=== PATIENT | female | born 1960 | race Caucasian/White ===

== ENCOUNTER 2019-10-12 09:19 | Outpatient (CLI) | payer BC, SELFPAY ==
--- NOTE | 2019-10-12 09:25 | MM_ITS ---
WS: [id number] BILATERAL DIGITAL SCREENING MAMMOGRAPHY WITH CAD CLINICAL INFORMATION: SCREENING HISTORY: Screening mammogram. No current complaints. COMPARISON: None. TECHNIQUE: Bilateral CC and MLO views. FINDINGS: Scattered fibroglandular densities bilaterally. No suspicious focal mass, asymmetry, calcifications, or architectural distortion. No evidence of malignancy. MM/[id number] IMPRESSION: BI-RADS: 1-Negative FOLLOW UP: 1 Year Follow-up Recommend return to annual screening mammography.
== END 2019-10-12 09:20 | disposition home or self-care (01) ==
LOC: RADSHAW 09:24
PROVIDERS: PCP Family Medicine; Visit Provider Family Medicine
DX: Z12.31 Encounter for screening mammogram for malignant neoplasm of breast (principal)
CPT/HCPCS: 77067

== ENCOUNTER → 2020-02-08 12:22 | Outpatient (BNVA) | payer BC, SELFPAY | PROVIDERS: PCP Family Medicine; Visit Provider Internal Medicine | DX: Z11.59 Encounter for screening for other viral diseases (principal); Z80.0 Family history of malignant neoplasm of digestive organs | CPT/HCPCS: 87635 ==

== ENCOUNTER 2020-02-11 08:27 | Day surgery (SDC) | payer BC, SELFPAY ==
[2020-02-09 11:25] VITALS: BMI 40.6
[2020-02-11] MEDS: sodium chloride 0.9% 1,000 ML 30 ML IV (08:45)
[2020-02-11 08:58] VITALS: BP 129/74; PULSE 64; RESP 18; TEMP 37.3; O2SAT 97
--- NOTE | 2020-02-11 09:03 | ANES.PREANE2 ---
Pre-Anesthetic Assessment Pre-Anesthetic Assessment: Height/Weight: Height 1.68 m Weight 114.305 kg Temp Pulse Resp BP Pulse Ox 99.1 F 64 18 129/74 97 02/11/20 08:58 02/11/20 08:58 02/11/20 08:58 02/11/20 08:58 02/11/20 08:58 Preop Diagnosis: screening Proposed Procedure: Operation Date: 02/11/20 09:30 Proposed Procedures p Colonoscopy 18333 Z80.0(Not Applicable) - Quinn Tong MD Familial anesthetic complications: None Was Beta Dennys taken within 24 hours: Yes Last intake: Intake Last Liquid Date 02/10/20 Last Liquid Time 20:00 Last Solid Date 02/09/20 Last Solid Time 18:00 Social: Social History: No alcohol and No tobacco Exam: Pre-Anes Outpt Exam: alert, oriented x 3, clear to auscultation bilaterally and regular rate & rhythm Airway: Cervical ROM: WNL MP: 3 Dentition: Full CV/HEM: CV/HEM: HTN GI: GI: GERD Anesthetic Plan: ASA status: 2 Anesthesia: MAC Risk of > 500 ml blood loss (7ml/kg in children): No Other Pertinent Information: Off phentermine for 8 days PFSH Anesthesia PFSH: Family History (Updated 01/17/20 @ 13:[address]) Other Cancer Diabetes Social History (Updated 01/17/20 @ 13:[address]) Smoking and tobacco status: never smoked Alcohol intake: never Adopted: No Marital status: Number of children: 2 service: No History of recent travel: No Current gender identity: Female Data Anesthesia Cardiac Studies: No Data to Display
--- NOTE | 2020-02-11 09:08 | W.PM.OPSUD ---
Surgery/Procedure H&P Update DATE OF PROCEDURE: February 11, 2020 DATE H&P PERFORMED: 01/17/20 PREOP DIAGNOSIS: screening PLANNED PROCEDURE: Operation Date: 02/11/20 09:30 Proposed Procedures p Colonoscopy 92707 Z80.0(Not Applicable) - Quinn Tong MD
[2020-02-11 10:13] VITALS: BP 130/106; PULSE 74; RESP 18; TEMP 36.8; O2SAT 95
[2020-02-11 10:24] VITALS: BP 129/87; PULSE 71; RESP 18; O2SAT 95
--- NOTE | 2020-02-11 10:35 | ANE.PACU2 ---
Inpatient post-anesthesia follow up: Airway intact: Yes Vital signs: Temperature 98.3 F Pulse Rate 71 Respiratory Rate 18 Blood Pressure 129/87 Pulse Oximetry 95 Oxygen Delivery Me thod Room Air Oxygen Flow Rate Fraction of Inspir ed Oxygen Hydration adequate: Yes Nausea and vomiting: No Pain level: 2 Mental status: Baseline
== END 2020-02-11 10:37 | disposition home or self-care (01) ==
PROVIDERS: PCP Family Medicine; Visit Provider Internal Medicine
PROC: 0DJD8ZZ Inspection of Lower Intestinal Tract, Via Natural or Artificial Opening Endoscopic (ICD-10-PCS; CPT 45378; principal; 2020-02-11 09:30)
DX: Z12.11 Encounter for screening for malignant neoplasm of colon (principal); Z86.010 Personal history of colon polyps; Z80.0 Family history of malignant neoplasm of digestive organs; I10 Essential (primary) hypertension; K21.9 Gastro-esophageal reflux disease without esophagitis
CPT/HCPCS: 12345; 45385; 88305; J2704; J3010; J7030

== ENCOUNTER 2021-11-07 13:43 | Outpatient (CLI) | payer OTHER, SELFPAY ==
--- NOTE | 2021-11-07 13:47 | MM_ITS ---
WS: [id number] BILATERAL 3D TOMOSYNTHESIS DIGITAL SCREENING MAMMOGRAPHY WITH CAD CLINICAL INFORMATION: SCREENING HISTORY: Screening mammogram. No current complaints. COMPARISON: October 12, 2019 TECHNIQUE: Bilateral CC and MLO views. FINDINGS: Scattered fibroglandular densities bilaterally. Incidental punctate calcifications. No suspicious foc al mass, asymmetry, calcifications, or architectural distortion. No evidence of malignancy. MM/[id number] IMPRESSION: BI-RADS: 2-Benign FOLLOW UP: 1 Year Follow-up Recommend return to annual screening mammography.
== END 2021-11-07 13:44 | disposition home or self-care (01) ==
LOC: RAD 13:44
PROVIDERS: PCP Family Medicine; Visit Provider Family Medicine
DX: Z12.31 Encounter for screening mammogram for malignant neoplasm of breast (principal)
CPT/HCPCS: 77063; 77067